=== PATIENT | male | born 1995 | race Caucasian/White ===

== ENCOUNTER 2017-11-03 11:56 | Emergency (ER) | payer OTHER, SELFPAY ==
[2017-11-03 12:01] VITALS: BP 124/77; PULSE 92; RESP 18; TEMP 36.6; O2SAT 95; BMI 20.3
--- NOTE | 2017-11-03 14:25 | ED.SKABFB ---
HPI - Skin/Abscess/Foreign Bdy General Chief complaint: Skin/Abscess/Foreign Body Stated complaint: LACERATION TO INDEX FINGER LEFT HAND Time Seen by Provider: 11/03/17 12:38 History of Present Illness HPI narrative: HPI 22-year-old male with up-to-date tetanus presents for evaluation of a 1.8 cm long full thickness laceration on the lateral aspect of his left index finger immediately distal to his PIP. Laceration occurred approximately 2 hours prior to evaluation when the patient slipped with a new wooden box maker blade while cutting items at work. Notes normal sensation in his finger, denies further injuries. ROS with no recent constitutional symptoms. Exam Gen: Pleasant, nontoxic-appearing, resting comfortably. HEENT: NC, AT, PEERL, EOMI. Resp: Unlabored respirations with a normal work of breathing. Card: Extremities warm and well perfused. GI: Non-distended. : Deferred MSK: left index finger visually normal with the exception of a 1.8 cm long full thickness laceration on the lateral aspect of the finger. Laceration immediately distal to the PIP and extends transversely, most medial aspect is posterior, distal aspect extends onto the lateral part of the palmar surface of the finger. Wound washed, no foreign bodies visualized, a partial laceration of what appears to be the extensor digitorum tendon can be visualized. Patient has 5/5 flexion and extension at the MCP, PIP, and DIP with each joint test in isolation. There is no various or valgus laxity at the MCP, PIP, or DIP. Patient has 5/5 abduction and adduction. Sensation is intact to touch grossly at the fingertip, medial, anterior, posterior, and lateral aspects of the finger. There is brisk distal capillary refill. Neuro: AO x 3, no facial asymmetry, vision and hearing WNL. Heme/Lymph: Deferred Skin: Normal color with no visible lesions (other than noted above). Psych: Mood and affect appropriate. MDM Previous chart, nursing note, and vitals reviewed. A/P: 22-year-old male with up-to-date tetanus presents for evaluation of a 1.8 cm long full thickness laceration on the lateral aspect of his left index finger immediately distal to his PIP. CMS intact, concern for partial ligamentous injury, laceration repaired as documented below. Finger splint in extension and patient referral to orthopedics. Cephalexin prophylaxis prescription provided. Return to care precautions provided. Impression: left index finger laceration (please reference below for remainder of encounter information) Laceration Repair Verbal consent obtained. After cleaned with chlorhexidine for 30 seconds a ring block performed with epinephrine with lidocaine, approximately 3 mL used in total, good local anesthesia obtained. Entirety of finger carefully washed, initially with soapy water, followed by extensive irrigation with clean running tap water. No debriding of tissue required. No foreign bodies removed, entirety of wound well visualized with no remaining foreign bodies appreciated. Using a clean procedure the wound was repaired with 3 buried 4-0 Vicryl sutures, cutaneous closure with 7 4-0 monofilament nylon simple interrupted sutures. No undermining required, patient tolerated the procedure well without apparent complications. Related Data Allergies Allergy/AdvReac Type Severity Reaction Status Date / Time No Known Drug Allergies Allergy Verified 11/03/17 12:03 [facility] Social History Smoking Status: Current every day smoker Exam Initial Vital Signs Initial Vital Signs: Vital Signs Temperature 97.9 F 11/03/17 12:01 Pulse Rate 92 H 11/03/17 12:01 Respiratory Rate 18 11/03/17 12:01 Blood Pressure 124/77 H 11/03/17 12:01 Pulse Oximetry 95 08/02/18 12:01 Course Vital Signs - 8 hr 11/03/17 12:01 Temperature 97.9 F Pulse Rate 92 H Respiratory Rate 18 Blood Pressure 124/77 H Pulse Oximetry 95
--- NOTE | 2017-11-07 12:18 | PC.NURSE ---
F/U phone call: Having no problems. Has f/u appt tomorrow. Encouraged to f/u as needed and indicated and return for any difficulty or concerns.
== END 2017-11-03 14:47 | disposition home or self-care (01) ==
PROVIDERS: Emergency Provider Emergency Medicine
DX: S61.211A Laceration without foreign body of left index finger without damage to nail, initial encounter (principal); W26.9XXA Contact with unspecified sharp object(s), initial encounter; Y99.0 Civilian activity done for income or pay
CPT/HCPCS: 29130; 99282